=== PATIENT | male | born 1955 | race Caucasian/White ===

== ENCOUNTER → 2017-04-19 | Day surgery (SDC) | payer OTHER ==
[2017-04-19] VITALS (7 sets, daily range): BP systolic 118–160; BP diastolic 89–116; PULSE 64–82; RESP 12–18; O2SAT 93–97
[~2017-04-19] VITALS: Ht 175.3 cm; Wt 95.2 kg
[~2017-04-19] MED LIST: 0.9% Sodium Chloride 1,000 ML IV SCH; HYG25 PO; LOSA25TA21 PO; Sodium Chloride LOK Flush 10 mL Syringe IV PRN; fentaNYL-PF 50 mCg/mL 2 mL Inj IVPUSH PRN
--- NOTE | 2017-04-19 09:57 | PCM.ENDCOL ---
Colonoscopy Date of Service: Apr 19, 2017 Physician Raafel Oneal MD Pre Procedure Diagnosis: Screening Post Procedure Dx & Findings: bumpy periappendiceal mucosa and hemorrhoids Procedure Colonoscopy PROCEDURE IN DETAIL: Prep adequate Withdrawal time 10 minutes After unremarkable rectal examination the Olympus video colonoscope was inserted patient's anal canal and was advanced to cecum. Landmarks were identified including the ileocecal valve and appendiceal orifice. Scope was withdrawn systematically. Visualized colonic mucosa showed healthy shiny mucosa with normal healthy-appearing vasculature. Around the alexandra appendiceal area, the mucosa seemed mildly edematous and bumpy. Biopsies obtained. The prep was overall adequate she did have small rise however we were able to clean successfully. In the rectum retroflexion was done which showed hemorrhoids. Anal canal was inspected carefully on the way out and hemorrhoids noted. Impression bumpy periappendiceal mucosa Hemorrhoids No family or personal history of colon cancer or polyp. Recommendation Repeat colonoscopy in 10 years Presedation Assessment Risks and Benefits Informed consent was obtained from the patient after all risks and benefits including but not limited to drug reaction, infection, pain, bleeding, perforation, as well as alternatives were discussed. Patient monitoring Continuous pulse oximetry, cardiac monitoring, blood pressure monitoring, IV access, and oxygen at 2L per nasal cannula. Periprocedural Fentanyl: Fentanyl 150mcg Incrementally Midazolam: Midazolam 7mg Incrementally Complications There were no periprocedural complications identified. Post Procedure Plan Post Procedure Recommendations 1. Restrict activities today. 2. Resume normal activities in the morning. 3. Resume medications. 4. Patient informed of normal post procedure side effects as bloating, drowsiness, blood streaking in the stool. 5. average risk CRCS. If colon polyps come back as: -Hyperplastic- can repeat colonoscopy in 10 years -Tubular adenoma- repeat colonoscopy in 5 years -Tubulovillous/villous adenoma- repeat colonoscopy in 3 years -If any dysplasia- return to clinic as soon as possible 6. Please don't hesitate to call me with any questions. Rafael Oneal MD Apr 19, 2017 09:57
--- NOTE | 2017-04-20 17:29 | PATH ---
SURGICAL PATHOLOGY Attending Physician:Rafael Oneal M.D. CASE STATUS: Signed Out PATIENT NAME: MANJIT QUINONEZ PID: [id number] : 1955 DATE COLLECTED:04/19/2017 16:48 SPECIMEN: Colon, Biopsy CLINICAL HISTORY: 1). CECAL BIOPSY FINAL DIAGNOSIS: Cecum, Biopsy: Hyperplastic polyp (1 of 2 pieces). ICD10: K63.5 GROSS DESCRIPTION: The specimen is received in one formalin filled container labeled with the patient's name, sublabeled "cecal" and consists of 2 portions of tissue which aggregate to 0.2 x 0.2 x 0.2 CM. The specimen is entirely submitted in one cassette. 04/19/2017DC ICD-9 CODES: CPT CODES: 1: 06422 Electronically Signed Out Claudio Maurer MD, Ph.D. [facility] Pathology [facility] [place] [address] Technical component performed at [facility], [address] [place] [address] [address], [address]
== END | disposition home or self-care (01) ==
LOC: END 00:33
PROVIDERS: ATTEND Internal Medicine
DX: Z12.11 Encounter for screening for malignant neoplasm of colon (principal); K63.5 Polyp of colon; K64.8 Other hemorrhoids; Z80.0 Family history of malignant neoplasm of digestive organs; I10 Essential (primary) hypertension; E55.9 Vitamin D deficiency, unspecified; Z87.891 Personal history of nicotine dependence
CPT/HCPCS: 45380; 88305; G0500; J2250; J3010; J7030